=== PATIENT | female | born 1950 | race Caucasian/White ===

== ENCOUNTER → 2016-04-26 | Outpatient (CLI) | payer MEDICARE ==
--- NOTE | 2016-04-26 15:54 | BD ---
EXAMINATION TYPE: MG DEXA axial skeleton. DATE OF EXAM: 04/26/2016 2:27 PM COMPARISON: 04.14.2008 CLINICAL HISTORY: M89.9 DISORDER OF THE BONE Height: 61.3 Weight: 156 FRAX RISK QUESTIONS: Alcohol (3 or more units per day): NO Family History (Parent hip fracture): NO Glucocorticoids (More than 3mos): NO (Ex: prednisone, prednisolone, methylprednisolone, dexamethasone, and hydrocortisone). History of Fracture in Adulthood: NO Secondary Osteoporosis: NO 1. Type 1 Diabetes: NO 2. Hyperthyroidism: NO 3. Menopause before 45: NO 4. Malnutrition: NO 5. Chronic liver disease: NO Rheumatoid Arthritis: NO Current Tobacco Use: NO RISK FACTORS HISTORY OF: Family History of Osteoporosis: YES, HER MOTHER Smoke tobacco: NO Drink Alcohol: SOCIAL Active: YES Diet low in dairy products/other sources of calcium: NO Postmenopausal woman: 51 YRS OLD Take estrogen and/or progesterone medications: CONTRACEPTIVES FOR ONLY 1 YR Adrenal Insufficiency: NO MEDICATIONS: Osteoporosis Medications: HAD A REACTION TO ACTENOL LONG AGO...WILL NOT USE Additional Medications: CALCIUM WITH D Additional History: NONE TO NOTE EXAM MEASUREMENTS: Bone mineral densitometry was performed using the ODIN System. Bone mineral density as measured about the Lumbar spine is: ----- L1-L4(G/cm2): 1.038 T Score Values are as follows: ----- L1: -1.1 ----- L2: -1.3 ----- L3: -1.2 ----- L4: -1.2 ----- L1-L4: -1.2 Bone mineral density has: Increased 6.7% since study of: 04.14.2008 Bone mineral density about the R hip (g/cm2): 0.852 Bone mineral density about the L hip (g/cm2): 0.848 T Score values are as follows: -----R Neck: -1.8 -----L Neck: -1.2 -----R Intertrochanter: -1.5 -----L Intertrochanter: -1.3 Bone mineral density REMAINED THE SAME...0.0: SINCE STUDY OF 04.14.2008 FRAX %'S: 11.3% FOR A MAJOR OSTEOPOROTIC FX AND 1.9% FOR A HIP FX......PROBABILITY OF FX IN 10 YRS TIME IMPRESSION: Osteopenia (T Score between -2.5 and -1 as noted by T score values There is slightly increased risk of fracture and the patient may be considered for treatment. Re-Screen 1-2 years. FOR BOTH HIPS AND LUMBAR SPINE remains present. NOTE: T-SCORE=SD OF THE YOUNG ADULT MEAN.
--- NOTE | 2016-04-27 11:07 | MM ---
Reason for exam: screening (asymptomatic). Last mammogram was performed 1 year and 1 month ago. History: Patient is postmenopausal. Benign right mammotome panel of the right breast, October 12, 2005. Took hormonal contraceptives for 1 year beginning at age 19. Physical Findings: A clinical breast exam by your physician is recommended on an annual basis and results should be correlated with mammographic findings. MG 3D Screening Mammo W/Cad Bilateral CC and MLO view(s) were taken. Prior study comparison: March 24, 2015, bilateral MG 3d screening mammo w/cad. October 23, 2013, bilateral MG screening mammo w CAD. There are scattered fibroglandular densities. Previous mammotome biopsy in the right breast. There is chronic nodularity in the left breast. No significant changes when compared with prior studies. ASSESSMENT: Benign, BI-RAD 2 RECOMMENDATION: Routine screening mammogram of both breasts in 1 year.
== END | disposition home or self-care (01) ==
LOC: RADMAMWWP 13:54
PROVIDERS: ATTEND Obstetrics & Gynecology
DX: Z12.31 Encounter for screening mammogram for malignant neoplasm of breast (principal); M85.80 Other specified disorders of bone density and structure, unspecified site; M89.9 Disorder of bone, unspecified
CPT/HCPCS: 77080; 77063; G0202

== ENCOUNTER → 2016-05-10 | Outpatient (CLI) | payer MEDICARE ==
--- NOTE | 2016-05-10 13:10 | US ---
EXAMINATION TYPE: US pelvic complete DATE OF EXAM: 05/10/2016 8:34 AM COMPARISON: NONE CLINICAL HISTORY: R10.2 pelvic pain. Pelvic discomfort. Patient states falling in February. TECHNIQUE: Transabdominal (TA) Date of LMP: PM, EXAM MEASUREMENTS: Uterus: 8.7 x 4.1 x 4.3 cm Endometrial Stripe: 0.7 cm Right Ovary: 2.4 x 1.3 x 1.3 cm Left Ovary: 2.6 x 1.7 x 1.1 cm 1. Uterus: Anteverted Two fundal heterogenous lesions with echogenic areas seen. 1- 3.8 x 2.9 x 3 .6 cm. 2.1 x 1.9 x 2.1 cm. 2. Endometrium: Not well defined and transabdominal scanning, there may be an echogenic focus along endometrium measuring 5 x 9 mm 3. Right Ovary: wnl as visualized 4. Left Ovary: wnl as visualized Spectral, color and waveform doppler imaging shows good arterial and venous flow within the ovaries ; there is no evidence for ovarian torsion. 5. Bilateral Adnexa: wnl 6. Posterior cul-de-sac: no free fluid IMPRESSION: Fibroid uterus. Additional findings above Follow-up as indicated.
== END | disposition home or self-care (01) ==
LOC: RADUSMAIN 08:02
PROVIDERS: ATTEND Obstetrics & Gynecology
DX: D25.9 Leiomyoma of uterus, unspecified (principal)
CPT/HCPCS: 76856

== ENCOUNTER → 2017-05-17 | Outpatient (CLI) | payer MEDICARE ==
--- NOTE | 2017-05-20 13:42 | MM ---
Reason for exam: screening (asymptomatic). Last mammogram was performed 1 year and 1 month ago. History: Patient is postmenopausal. Benign right mammotome panel of the right breast, October 12, 2005. Took hormonal contraceptives for 1 year beginning at age 19. Physical Findings: A clinical breast exam by your physician is recommended on an annual basis and results should be correlated with mammographic findings. MG 3D Screening Mammo W/Cad Bilateral CC and MLO view(s) were taken. Prior study comparison: April 26, 2016, bilateral MG 3d screening mammo w/cad. March 24, 2015, bilateral MG 3d screening mammo w/cad. The breast tissue is heterogeneously dense. This may lower the sensitivity of mammography. No significant changes when compared with prior studies. ASSESSMENT: Benign, BI-RAD 2 RECOMMENDATION: Routine screening mammogram of both breasts in 1 year.
== END | disposition home or self-care (01) ==
LOC: RADMAMWWP 07:00
PROVIDERS: ATTEND Obstetrics & Gynecology
DX: Z12.31 Encounter for screening mammogram for malignant neoplasm of breast (principal)
CPT/HCPCS: 77063; 77067

== ENCOUNTER → 2017-06-04 | Outpatient (CLI) | payer MEDICARE ==
--- NOTE | 2017-06-04 08:25 | US ---
EXAMINATION TYPE: US pelvic complete DATE OF EXAM: 06/04/2017 COMPARISON: 05/10/2016 CLINICAL HISTORY: R10.2 pelvic pain; patient stated has intermittent pelvic pain and known uterine fi broids; TECHNIQUE: Transabdominal (TA). Transabdominal sonographic images of the pelvis were acquired. Maria Victoria ent deferred TV US. Date of LMP: post menopausal EXAM MEASUREMENTS: Uterus: 9.2 x 4.7 x 4.3cm Endometrial Stripe: 0.8 cm Right Ovary: 2.1 x 1.9 x 2.2 cm Left Ovary: 2.4 x 2.7 x 1.6 cm 1. Uterus: Two oval isoechoic masses (uterine fibroids) noted in uterus with larger upper mass = 3.9 x 3.0 x 4.8cm and smaller mass mid myometrium = 2.2 x 2.1 x 1.9cm. 2. Endometrium: thickness is upper limits of normal for post menopause 3. Right Ovary: area measured but could represent exophytic uterine fibroid 4. Left Ovary: small follicles 5. Bilateral Adnexa: wnl 6. Posterior cul-de-sac: wnl IMPRESSION: 1. Leiomyomatous change of the uterus.
== END | disposition home or self-care (01) ==
LOC: RADUSWWP 06:59
PROVIDERS: ATTEND Obstetrics & Gynecology
DX: D25.9 Leiomyoma of uterus, unspecified (principal)
CPT/HCPCS: 76856

== ENCOUNTER → 2017-07-25 | Outpatient (CLI) | payer MEDICARE ==
[2017-07-25 10:59] LABS: Basophils # (A) 0.1 k/uL (0-0.2); Basophils % (A) 1 %; Eosinophils # (A) 0.4 k/uL (0-0.7); Eosinophils % (A) 4 %; HCT 44.4 % (34.0-46.0); HGB 14.5 gm/dL (11.4-16.0); Lymphocytes # (A) 2.2 k/uL (1.0-4.8); Lymphocytes % (A) 25 %; MCH 30.5 pg (25.0-35.0); MCHC 32.7 g/dL (31.0-37.0); MCV 93.4 fL (80.0-100.0); Mean Platelet Volume 6.6; Monocytes # (A) 0.6 k/uL (0-1.0); Monocytes % (A) 7 %; Neutrophils # (A) 5.2 k/uL (1.3-7.7); Neutrophils % (A) 60 %; Platelet Count 293 k/uL (150-450); RBC 4.76 m/uL (3.80-5.40); RDW 13.3 % (11.5-15.5); WBC 8.7 k/uL (3.8-10.6)
== END | disposition home or self-care (01) ==
LOC: LABPAT 10:26
PROVIDERS: ATTEND Obstetrics & Gynecology
DX: Z01.818 Encounter for other preprocedural examination (principal); Z01.812 Encounter for preprocedural laboratory examination
CPT/HCPCS: 36415; 85025; 93005

== ENCOUNTER 2017-08-02 06:21 | Day surgery (SDC) | payer MEDICARE ==
[2017-07-30 10:18] VITALS: BMI 25.0
--- NOTE | 2017-07-31 16:50 | P.HPOB ---
History of Present Illness H&P Date: 07/31/17 Chief Complaint: Thickened endometrium Patient is a 67-year-old female who had been originally seen for pelvic pressure and pain. Ultrasound done approximately 1 year ago showed and returned to be approximately 7 mm at that time she had no vaginal bleeding and no other symptoms and all of the findings had been normal therefore repeat was done approximately 1 year later and the lining was essentially the same but as it is still slightly thickened a D&C will be done to verify no pathology. Risks /benefits/alternatives to this procedure were discussed with the patient in detail and all questions were answered for both she and her prior to proceeding to the operating room. Past Medical History Past Medical History: Hypertension Additional Past Medical History / Comment(s): NO BLOOD PRESSURE MEDS, JUST MONITORING. UTERINE FIBROIDS, URINE LEAKAGE History of Any Multi-Drug Resistant Organisms: None Reported Past Surgical History: No Surgical Hx Reported Past Anesthesia/Blood Transfusion Reactions: No Reported Reaction Past Psychological History: Anxiety Smoking Status: Former smoker Past Alcohol Use History: Daily Additional Past Alcohol Use History / Comment(s): 1-2 GLASSES OF WINE A NIGHT Past Drug Use History: None Reported - Past Family History Father Family Medical History: Cancer, Myocardial Infarction (OR) Additional Family Medical History / Comment(s): ESOPHAGEAL CANCER Sister(s) Family Medical History: Cancer Medications and Allergies Home Medications Medication Instructions Recorded Confirmed Type No Known Home Medications [No 07/30/17 07/30/17 History Known Home Medications] Allergies Allergy/AdvReac Type Severity Reaction Status Date / Time methylprednisolone Allergy Unknown Verified 07/30/17 10:18 Exam Osteopathic Statement: *. No significant issues noted on an osteopathic structural exam other than those noted in the History and Physical/Consult. - OBG Physical Exam Breast: both: normal (no masses) Abdomen: bowel sounds normal, no diffuse tenderness, no bruit present, no guarding noted, no hepatomegaly, no splenomegaly, no mass Vulva: both: normal Vagina: normal moisture, no discharge Cervix: no lesion, no discharge Uterus: normal size, normal contour Adnexa: both: normal Anus/Rectum: normal perianal skin, no rectal mass, no hemorrhoids, heme negative
[~2017-08-02 06:21] MED LIST: HYDROmorphone 0.5 MG/0.5 ML SYRINGE IVP PRN; LACTATED RINGERS 1,000 ML IV SCH; LIDOCAINE 1% 20 ML VIAL (10MG/ML) FOR IV START INTRADERMA PRN; MIDAZOLAM 2 MG/2 ML VIAL IV PRN; ONDANSETRON 4 MG/2 ML VIAL IVP ONE; Pre Op ABX Message 1 EACH MISC MISCELLANE ONE; SCOPOLAMINE 1.5MG/72HR PATCH TRANSDERM ONE
[2017-08-02] MEDS ORDERED: fentaNYL (PF) 50 MCG/ML 2 ML AMP ONE (08:06)
[2017-08-02] MEDS ORDERED: KETOROLAC 30 MG/ML 1 ML VIAL ONE (08:06)
[2017-08-02] MEDS ORDERED: PROPOFOL 10 MG/ML 20 ML VIAL IV ONE (08:06)
[2017-08-02] MEDS ORDERED: MIDAZOLAM 2 MG/2 ML VIAL ONE (08:06)
--- NOTE | 2017-08-02 08:37 | P.OP ---
Date of Procedure: 08/02/17 Preoperative Diagnosis: Thickened endometrium Postoperative Diagnosis: Same with polyps Procedure(s) Performed: D&C with hysteroscopy and polypectomy Anesthesia: IVANA [place] Surgeon: Mazin Sahni Estimated Blood Loss (ml): 5 Pathology: other (Uterine curettings) Condition: stable Disposition: same day Operative Findings: 2 distinct polyps are noted Description of Procedure: Patient was taken to the operating suite where a general anesthetic was found be adequate. She was prepped and draped in the normal sterile fashion and placed in dorsal lithotomy position. Initially a weighted speculum was inserted into the vagina and anterior lip of the cervix identified and grasped with single-tooth tenaculum. Uterus is then sounded to 8 cm and then cervix was dilated. Camera was inserted with notation of polyps and otherwise what appeared to be atrophic endometrium. Therefore scope was removed and polyp forceps was used to remove 2 distinct polyps. Sharp curettings of endometrium were obtained after this but scant to no tissue was obtained. All instruments were then removed. Sponge, lap, needle counts were all correct 2. Patient was then taken to the recovery room in stable and satisfactory condition. Plan - Discharge Summary Discharge Rx Participant: Yes New Discharge Prescriptions: New Ibuprofen [Motrin] 600 mg PO Q6HR PRN #30 tab PRN Reason: Pain Discharge Medication List Ibuprofen [Motrin] 600 mg PO Q6HR PRN #30 tab 08/02/17 [Rx] Activity/Diet/Wound Care/Special Instructions: Heavy lifting today, limit stairs and driving today, and pelvic rest. If any high temperatures, heavy bleeding, or severe pain call my office Discharge Disposition: HOME SELF-CARE
[2017-08-02 08:46] VITALS: TEMP 97.4
[2017-08-02 09:59] VITALS: BP 136/59; PULSE 59; RESP 18
== END 2017-08-02 10:19 | disposition home or self-care (01) ==
LOC: OR 06:21
PROVIDERS: ATTEND Obstetrics & Gynecology
DX: N84.0 Polyp of corpus uteri (principal); I10 Essential (primary) hypertension; F41.9 Anxiety disorder, unspecified; Z88.8 Allergy status to other drugs, medicaments and biological substances; Z87.891 Personal history of nicotine dependence
CPT/HCPCS: 88305; 58558; J2250; J2405; J3010; J1885; J2704

== ENCOUNTER → 2018-06-18 | Outpatient (CLI) | payer MEDICARE ==
--- NOTE | 2018-06-19 09:21 | MM ---
Reason for exam: screening (asymptomatic). Last mammogram was performed 1 year and 1 month ago. History: Patient is postmenopausal. Benign right mammotome panel of the right breast, October 12, 2005. Took hormonal contraceptives for 1 year beginning at age 19. Physical Findings: A clinical breast exam by your physician is recommended on an annual basis and results should be correlated with mammographic findings. MG 3D Screening Mammo W/Cad Bilateral CC and MLO view(s) were taken. Prior study comparison: May 17, 2017, bilateral MG 3d screening mammo w/cad. April 26, 2016, bilateral MG 3d screening mammo w/cad. The breast tissue is heterogeneously dense. This may lower the sensitivity of mammography. Previous mammotome biopsy in the right breast. There is chronic nodularity in the left breast. No significant changes when compared with prior studies. ASSESSMENT: Negative, BI-RAD 1 RECOMMENDATION: Routine screening mammogram of both breasts in 1 year.
== END | disposition home or self-care (01) ==
LOC: RADMAMWWP 07:49
PROVIDERS: ATTEND Obstetrics & Gynecology
DX: Z12.31 Encounter for screening mammogram for malignant neoplasm of breast (principal)
CPT/HCPCS: 77063; 77067

== ENCOUNTER → 2019-07-20 | Outpatient (CLI) | payer MEDICARE ==
--- NOTE | 2019-07-20 09:03 | US ---
EXAMINATION TYPE: US axilla LT DATE OF EXAM: 07/20/2019 COMPARISON: NONE CLINICAL HISTORY: R59.0 localized enlarged lymph nodes. Left axilla pain and swelling patient fell a month ago. FINDINGS/TECHNIQUE: Grayscale and color imaging was performed of the left axilla for left axillary pa in and swelling. There are 3 hypoechoic areas seen with the largest measuring 3 cm. The largest of th [place] contains a central fatty hilum and has abnormal cortical thickening measuring 1.2 cm. IMPRESSION: Suspicious left axillary adenopathy. Percutaneous biopsy recommended.
== END | disposition home or self-care (01) ==
LOC: RADUSWWP 08:19
PROVIDERS: ATTEND Family Medicine
DX: R59.0 Localized enlarged lymph nodes (principal)

== ENCOUNTER 2019-10-16 23:20 | Observation (INO) | payer MEDICARE ==
[2019-10-16] MEDS ORDERED: ACETAMINOPHEN TAB 500 MG TAB PO STA (23:40)
--- NOTE | 2019-10-16 23:50 | ED ---
Fever HPI - General Chief Complaint: Fever Stated Complaint: Fever Time Seen by Provider: 10/16/19 23:30 Source: patient, family Mode of arrival: ambulatory Limitations: no limitations - History of Present Illness Initial Comments: 69-year-old female patient with past medical history significant for breast cancer currently being treated with chemo, hypertension, and diverticulitis presents to the emergency department today for evaluation of fever. Patient states that she is currently taking Augmentin for possible diverticulitis. Her physician called in the antibiotic because patient was experiencing some pressure in her lower abdomen. Her last Chemo treatment was October 07. States that she developed a fever this evening. She did call her oncologist and was told to come to the emergency department for labs. Patient states her temperature at home was 101F. She denies any abdominal pain. States she is having soft bowel movements and did have blood in her stool this morning. She denies any cough, congestion, rash, hematuria, dysuria, urinary urgency, urinary frequency. Denies nausea or vomiting. Patient denies any recent shortness of breath, chest pain, back pain, numbness, tingling, dizziness, weakness, headache, visual changes, or any other complaints. - Related Data Previous Rx's Medication Instructions Recorded Ibuprofen [Motrin] 600 mg PO Q6HR PRN #30 tab 08/02/17 Ibuprofen [Motrin] 600 mg PO Q6HR PRN #30 tab 08/02/17 Allergies Allergy/AdvReac Type Severity Reaction Status Date / Time methylprednisolone Allergy Unknown Verified 10/16/19 23:27 prednisone Allergy Unknown Verified 10/16/19 23:28 Review of Systems ROS Statement: Those systems with pertinent positive or pertinent negative responses have been documented in the HPI. ROS Other: All systems not noted in ROS Statement are negative. Past Medical History Past Medical History: Cancer, Hypertension Additional Past Medical History / Comment(s): breast CA History of Any Multi-Drug Resistant Organisms: None Reported Past Surgical History: No Surgical Hx Reported Past Psychological History: No Psychological Hx Reported Smoking Status: Former smoker Past Alcohol Use History: None Reported Past Drug Use History: None Reported General Exam Limitations: no limitations General appearance: alert, in no apparent distress, other (This is a well- developed, well-nourished adult female patient in no acute distress. Vital sig ns upon presentation are temperature 101.8F, pulse 98, respiration 16, blood pressure 153/73, pulse ox 98% on room air.) Eye exam: Present: normal appearance, PERRL, EOMI. Absent: scleral icterus, conjunctival injection, periorbital swelling ENT exam: Present: normal oropharynx, mucous membranes moist, other (Multiple oral lesions, erythema noted.). Absent: normal exam Respiratory exam: Present: normal lung sounds bilaterally. Absent: respiratory distress, wheezes, rales, rhonchi, stridor Cardiovascular Exam: Present: regular rate, normal rhythm, normal heart sounds. Absent: systolic murmur, diastolic murmur, rubs, gallop, clicks GI/Abdominal exam: Present: soft, normal bowel sounds. Absent: distended, tenderness, guarding, rebound, rigid Neurological exam: Present: alert, oriented X3, CN II-XII intact Psychiatric exam: Present: normal affect, normal mood Skin exam: Present: warm, dry, intact, normal color. Absent: rash Course Vital Signs 10/16/19 10/16/19 10/17/19 23:21 23:40 01:49 Temperature 100.2 F H 101.8 F H 99.5 F Pulse Rate 98 77 Respiratory 16 18 Rate Blood Pressure 153/73 121/51 O2 Sat by Pulse 98 99 Oximetry - Reevaluation(s) Reevaluation #1: 10/17/19 01:45 Call has been placed to [facility] in order to speak to the patient's oncologist Dr. Rayna Gomez M.D. Reevaluation #2: 10/17/19 02:39 [facility] called back, they are still attempting to contact the patient's oncologist. Medical Decision Making - Medical Decision Making 69-year-old female patient with past history significant for diagnosis of breast cancer, currently receiving chemotherapy Cytoxan 1000 mg every 2 weeks. Last dose was October 07. Next dose in Oct 21. Patient was started on Augmentin yesterday by her oncologist for reports of lower abdominal pressure, patient did have a diverticulitis infection in August. At present patient reports no abdominal pain or pressure. Physical examination revealed a soft and nontender abdomen. Upon arrival she did have a temperature elevated at 101.8F. Labs reviewed and did reveal decreased white blood cell count at 0.5, hemoglobin 8.6. Labs performed on 09/24/19 showed a white blood cell count of 19.9 and hemoglobin of 10.9. Chest x-ray and urinalysis here were negative for signs of infection. Since patient is not currently having abdominal pain I did not perform CT of the abdomen. We did discuss her results and concern for neutropenic fever. I did attempt to contact her oncologist Dr. Liliam Goemz at [facility], but was unsuccessful. Patient is reluctant to be transferred to [facility]. She'll be admitted to the hospital and started on cefepime and vancomycin. We will consult Dr. Rangel here. Patient is agreeable to this plan. - Lab Data Result diagrams: 10/17/19 00:16 10/17/19 00:16 Lab Results 10/17/19 10/17/19 10/17/19 Range/Units 00:16 00:16 00:16 WBC 0.5 L* (3.8-10.6) k/uL RBC 2.79 L (3.80-5.40) m/uL Hgb 8.6 L (11.4-16.0) gm/dL Hct 25.6 L (34.0-46.0) % MCV 91.6 (80.0-100.0) fL MCH 30.6 (25.0-35.0) pg MCHC 33.5 (31.0-37.0) g/dL RDW 13.9 (11.5-15.5) % Plt Count 91 L (150-450) k/uL Differential Comment Manual Slide Review Performed PT 9.7 (9.0-12.0) sec INR 0.9 (<1.2) APTT 24.6 (22.0-30.0) sec Sodium (137-145) mmol/L Potassium (3.5-5.1) mmol/L Chloride (98-107) mmol/L Carbon Dioxide (22-30) mmol/L Anion Gap mmol/L BUN (7-17) mg/dL Creatinine (0.52-1.04) mg/dL Est GFR (CKD-EPI)AfAm (>60 ml/min/1.73 sqM) Est GFR (CKD-EPI)NonAf (>60 ml/min/1.73 sqM) Glucose (74-99) mg/dL Plasma Lactic Acid Inocencio (0.7-2.0) mmol/L Calcium (8.4-10.2) mg/dL Total Bilirubin (0.2-1.3) mg/dL AST (14-36) U/L ALT (4-34) U/L Alkaline Phosphatase (38-126) U/L Total Protein (6.3-8.2) g/dL Albumin (3.5-5.0) g/dL Urine Color Yellow Urine Appearance Clear (Clear) Urine pH 5.5 (5.0-8.0) Ur Specific [place] 1.023 (1.001-1.035) Urine Protein Negative (Negative) Urine Glucose (UA) Negative (Negative) Urine Ketones 1+ H (Negative) Urine Blood Trace H (Negative) Urine Nitrite Negative (Negative) Urine Bilirubin Negative (Negative) Urine Urobilinogen 2.0 (<2.0) mg/dL Ur Leukocyte Esterase Negative (Negative) Urine WBC 2 (0-5) /hpf Ur Squamous Epith Cells <1 (0-4) /hpf Urine Mucus Rare H (None) /hpf 10/17/19 10/17/19 Range/Units 00:16 00:16 WBC (3.8-10.6) k/uL RBC (3.80-5.40) m/uL Hgb (11.4-16.0) gm/dL Hct (34.0-46.0) % MCV (80.0-100.0) fL MCH (25.0-35.0) pg MCHC (31.0-37.0) g/dL RDW (11.5-15.5) % Plt Count (150-450) k/uL Differential Comment Manual Slide Review PT (9.0-12.0) sec INR (<1.2) APTT (22.0-30.0) sec Sodium 133 L (137-145) mmol/L Potassium 3.7 (3.5-5.1) mmol/L Chloride 103 (98-107) mmol/L Carbon Dioxide 23 (22-30) mmol/L Anion Gap 7 mmol/L BUN 9 (7-17) mg/dL Creatinine 0.57 (0.52-1.04) mg/dL Est GFR (CKD-EPI)AfAm >90 (>60 ml/min/1.73 sqM) Est GFR (CKD-EPI)NonAf >90 (>60 ml/min/1.73 sqM) Glucose 116 H (74-99) mg/dL Plasma Lactic Acid Inocencio 1.0 (0.7-2.0) mmol/L Calcium 8.5 (8.4-10.2) mg/dL Total Bilirubin 0.6 (0.2-1.3) mg/dL AST 13 L (14-36) U/L ALT 8 (4-34) U/L Alkaline Phosphatase 78 (38-126) U/L Total Protein 6.1 L (6.3-8.2) g/dL Albumin 3.6 (3.5-5.0) g/dL Urine Color Urine Appearance (Clear) Urine pH (5.0-8.0) Ur Specific [place] (1.001-1.035) Urine Protein (Negative) Urine Glucose (UA) (Negative) Urine Ketones (Negative) Urine Blood (Negative) Urine Nitrite (Negative) Urine Bilirubin (Negative) Urine Urobilinogen (<2.0) mg/dL Ur Leukocyte Esterase (Negative) Urine WBC (0-5) /hpf Ur Squamous Epith Cells (0-4) /hpf Urine Mucus (None) /hpf - EKG Data -: EKG Interpreted by Ca EKG Comments: EKG obtained at 00 44 shows normal sinus rhythm with a ventricular rate is 78, WI interval 166, QRS duration 82, QT 376, QTC 428. No evidence of ST elevation or depression. - Radiology Data Radiology results: report reviewed, image reviewed Two-view x-ray of the chest is obtained. Report was reviewed in its entirety. Impression by Dr. Mon shows mild atelectasis left lung base. No heart failure. Normal heart. Disposition Clinical Impression: Neutropenic fever Disposition: ADMITTED IP TO THIS [facility] Condition: Serious Referrals: Cedric Adams MD [Primary Care Provider] - 1-2 days Decision to Admit Reason: Admit from EC Decision Date: 10/17/19 Decision Time: 03:06
[2019-10-17] MEDS: SODIUM CHLORIDE 0.9% 500 ML 500 ML IV SCH ×3 (00:40→03:43)
[2019-10-17 00:48] LABS: Appearance,Urine Clear (Clear); Bilirubin,Urine Negative (Negative); Blood,Urine Trace (Negative); Color,Urine Yellow; Glucose,Urine (UA) Negative (Negative); Ketones,Urine 1+ (Negative); Leukocyte Esterase,Urine Negative (Negative); Mucus,Urine Rare /hpf; Nitrite,Urine Negative (Negative); PH, Urine 5.5 (5.0-8.0); Protein,Urine Negative (Negative); Specific Gravity,Urine 1.023 (1.001-1.035); Squamous Epithelial Cell,Urine <1 /hpf (0-4); WBC,Urine 2 /hpf (0-5)
[2019-10-17 00:52] LABS: HCT 25.6 % (34.0-46.0); HGB 8.6 gm/dL (11.4-16.0); MCH 30.6 pg (25.0-35.0); MCHC 33.5 g/dL (31.0-37.0); MCV 91.6 fL (80.0-100.0); Mean Platelet Volume 7.2; RBC 2.79 m/uL (3.80-5.40); RDW 13.9 % (11.5-15.5)
[2019-10-17 00:55] LABS: WBC 0.5 k/uL (3.8-10.6)
[2019-10-17 00:56] LABS: INR 0.9 (<1.2); Partial Thromboplastin Time 24.6 sec (22.0-30.0); Prothrombin Time 9.7 sec (9.0-12.0)
[2019-10-17 00:59] LABS: ALT 8 U/L (4-34); AST 13 U/L (14-36); African American GFR (CKD) >90 (>60 ml/min/1.73 sqM); Albumin 3.6 g/dL (3.5-5.0); Alkaline Phosphatase 78 U/L (38-126); Anion Gap 7 mmol/L; Blood Urea Nitrogen 9 mg/dL (7-17); Calcium 8.5 mg/dL (8.4-10.2); Carbon Dioxide 23 mmol/L (22-30); Chloride 103 mmol/L (98-107); Glucose 116 mg/dL (74-99); Non-African American GFR(CKD) >90 (>60 ml/min/1.73 sqM); Potassium 3.7 mmol/L (3.5-5.1); Sodium 133 mmol/L (137-145); Total Bilirubin 0.6 mg/dL (0.2-1.3); Total Protein 6.1 g/dL (6.3-8.2)
--- NOTE | 2019-10-17 01:13 | XR ---
EXAMINATION TYPE: XR chest 2V DATE OF EXAM: 10/17/2019 COMPARISON: NONE HISTORY: Fever TECHNIQUE: 2 views FINDINGS: There is some mild atelectasis left lung base. There is hiatal hernia. There is right centr al venous catheter with tip in the superior vena cava. Thoracic aorta is atheromatous. There are no h ilar masses. Bony thorax is intact. IMPRESSION: There is some mild atelectasis left lung base. No heart failure. Normal heart.
[2019-10-17 01:14] LABS: Platelet Count 91 k/uL (150-450)
[2019-10-17] MEDS ORDERED: VANCOMYCIN IV PER PHARMACY 1 EACH MISC MISCELLANE PRN (02:57)
[2019-10-17] MEDS ORDERED: ONDANSETRON 4 MG/2 ML VIAL IVP PRN (02:59)
[2019-10-17] MEDS ORDERED: NALOXONE 0.4 MG/ML 1 ML VIAL IV PRN (02:59)
[2019-10-17] MEDS ORDERED: CEFEPIME 2 GM in SODIUM CHLORIDE 0.9% 100 ML IVPB ONE (03:00)
[2019-10-17] MEDS: SODIUM CHLORIDE 0.9% 1,000 ML IV SCH ×2 (03:20→19:32)
[2019-10-17] MEDS ORDERED: VANCOMYCIN 1,000 MG in SODIUM CHLORIDE 0.9% 250 ML IVPB ONE (04:00)
[2019-10-17] MEDS ORDERED: VANCOMYCIN 1,250 MG in SODIUM CHLORIDE 0.9% 250 ML IVPB ONE (05:00)
[2019-10-17] MEDS ORDERED: LIDOCAINE-PRILOCAINE 2.5-2.5% CREAM 5 GM TUBE TOPICAL PRN (11:00)
[2019-10-17] MEDS: CEFEPIME 2 GM in SODIUM CHLORIDE 0.9% 100 ML IVPB SCH ×2 (11:09→20:10)
[2019-10-17] MEDS: PANTOPRAZOLE 40 MG TABLET PO SCH (11:16)
[2019-10-17 13:25] VITALS: BMI 23.9
--- NOTE | 2019-10-17 16:31 | P.HPIM ---
History of Present Illness H&P Date: 10/17/19 Chief Complaint: Fever History of presenting complaint: This is a very pleasant 69-year-old patient follows with her primary Dr. Cedric Adams. Patient is being diagnosed with breast cancer. Gets chemotherapy every 2 weeks. Last chemotherapy was about 10 days ago. A month ago patient had diverticulitis. Since then she has been on preventive antibiotics. She developed a fever yesterday. No cough no shortness of breath no urinary symptoms. No diarrhea. Presented to the ER. Empirically started on antibiotics including vancomycin and cefepime. Patient has some oral sores. Decreased appetite. Some weight loss. is present at bedside. Patient's oncologist is Dr. Gomez from the [facility] Review of systems: GEN.: Fever tired decreased appetite EYES: None HEENT: Oral sores NECK: None RESPIRATORY: None CARDIOVASCULAR: None GASTROINTESTINAL: None GENITOURINARY: None MUSCULOSKELETAL: None LYMPHATICS: None HEMATOLOGICAL: None PSYCHIATRY: None NEUROLOGICAL: None Past medical history to include: Breast cancer currently undergoing chemotherapy, hypertension, diverticulitis, Social history: No smoking. No alcohol. . Physical examination: VITAL SIGNS: 101.8, 98, 16, 153/73, 98% on room air GENERAL: BMI 23.9, sitting up in chair, awake. EYES: Pupils equal. Conjunctiva normal. HEENT: External appearance of nose and ears normal, oral cavity grossly normal. NECK: JVD not raised; masses not palpable. HEART: First and second heart sounds are normal; no edema. LUNGS: Respiratory rate normal; clear to auscultation. ABDOMEN: Soft, nontender, liver spleen not palpable, no masses palpable. PSYCH: Alert and oriented x3; mood and affect normal. NEUROLOGICAL: Cranial nerves grossly intact; no facial asymmetry, power and sensation grossly intact. LYMPHATICS: No lymph nodes palpable in the axilla and neck INVESTIGATIONS, reviewed in the clinical context: White count 0.5 hemoglobin 8.6 platelets 91 potassium 3.7 creatinine 0.57 sodium 133 UA positive for ketones, trace blood EKG tracing personally reviewed by me-normal sinus rhythm Chest x-ray film personally reviewed by me-possible chronic changes Blood culture drawn Assessment: -Febrile neutropenia with no obvious source of infection. Patient empirically has been started on vancomycin and cefepime. -Breast cancer patient is getting chemotherapy every 2 weeks. -Pancytopenia secondary to chemotherapy -Essential hypertension -Oral Apthous ulcerations likely from chemotherapy -Anorexia from chemotherapy Plan: Blood cultures are drawn. IV fluids being given. Oncology consulted. Patient will need G-CSF. And showed is being added. Follow labs closely. Care was discussed with the patient at the bedside. Questions were answered. 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, diverticulitis History of Any Multi-Drug Resistant Organisms: None Reported Past Surgical History: No Surgical Hx Reported Past Anesthesia/Blood Transfusion Reactions: No Reported Reaction Past Psychological History: Depression Smoking Status: Former smoker Past Alcohol Use History: None Reported Past Drug Use History: None Reported - Past Family History Mother Family Medical History: Hypertension Additional Family Medical History / Comment(s): brain aneurysm Father Family Medical History: Cancer, Hypertension Additional Family Medical History / Comment(s): esophageal cancer Sister(s) Family Medical History: Cancer Additional Family Medical History / Comment(s): bone cancer Medications and Allergies Home Medications Medication Instructions Recorded Confirmed Type Amoxicillin/Potassium Clav 2 tablet PO BID 10/17/19 10/17/19 History [Amox-Clav ER 1,000-62.5 mg Tab] Lidocaine-Prilocaine Cream [Emla 1 applic TOPICAL DAILY PRN 10/17/19 10/17/19 History Cream 2.5%/2.5%] Omeprazole Magnesium [PriLOSEC OTC] 20 mg PO DAILY 10/17/19 10/17/19 History amLODIPine [Norvasc] 2.5 mg PO HS 10/17/19 10/17/19 History Allergies Allergy/AdvReac Type Severity Reaction Status Date / Time methylprednisolone AdvReac SEVERE Verified 10/17/19 08:06 HEADACHE, STROKE SYMPTOMS prednisone AdvReac severe Verified 10/17/19 08:06 headache stroke symptoms Physical Exam Vitals: Vital Signs Temp Pulse Pulse Resp BP BP Pulse Ox 10/17/19 04:21 98.4 F 78 17 111/62 99 10/17/19 03:21 99.4 F 73 18 113/55 98 10/17/19 01:49 99.5 F 77 18 121/51 99 10/16/19 23:40 101.8 F H 10/16/19 23:21 100.2 F H 98 16 153/73 98 Intake and Output 10/16/19 10/17/19 10/17/19 22:59 06:59 14:59 Intake Total 250 Balance 250 Intake: Intake, IV Titration 250 Amount Vancomycin 1,250 mg In 250 Sodium Chloride 0.9% 250 ml @ 125 mls/hr IVPB Q12H [facility] Rx#:[id number] Other: Voiding Method Toilet Toilet # Voids 1 Weight 61.235 kg Results CBC & Chem 7: 10/17/19 00:16 10/17/19 00:16 Labs: Abnormal Lab Results - Last 24 Hours (Table) 10/17/19 10/17/19 10/17/19 Range/Units 00:16 00:16 00:16 WBC 0.5 L* (3.8-10.6) k/uL RBC 2.79 L (3.80-5.40) m/uL Hgb 8.6 L (11.4-16.0) gm/dL Hct 25.6 L (34.0-46.0) % Plt Count 91 L (150-450) k/uL Sodium 133 L (137-145) mmol/L Glucose 116 H (74-99) mg/dL AST 13 L (14-36) U/L Total Protein 6.1 L (6.3-8.2) g/dL Urine Ketones 1+ H (Negative) Urine Blood Trace H (Negative) Urine Mucus Rare H (None) /hpf Thrombosis Risk Factor Assmnt - Choose All That Apply Any of the Below Risk Factors Present?: No Other Risk Factors: Yes Each Risk Factor Represents 2 Points: Age 61-74 years, Malignancy Other congenital or acquired thrombophilia - If yes, enter type in comment: No Thrombosis Risk Factor Assessment Total Risk Factor Score: 4 Thrombosis Risk Factor Assessment Level: Moderate Risk
[2019-10-17] MEDS: SALT AND SODA MOUTHWASH 1,000 ML PO SCH ×3 (17:11→21:20)
[2019-10-17] MEDS: VANCOMYCIN 1,250 MG in SODIUM CHLORIDE 0.9% 250 ML IVPB SCH (17:11)
[2019-10-17] MEDS: amLODIPine 2.5 MG TAB PO SCH (19:19)
[2019-10-18] MEDS: CEFEPIME 2 GM in SODIUM CHLORIDE 0.9% 100 ML IVPB SCH ×3 (03:09→19:55)
[2019-10-18] MEDS: SODIUM CHLORIDE 0.9% 1,000 ML IV SCH ×2 (04:21→11:52)
[2019-10-18] MEDS: VANCOMYCIN 1,250 MG in SODIUM CHLORIDE 0.9% 250 ML IVPB SCH ×2 (05:20→17:55)
[2019-10-18 06:53] LABS: HCT 22.2 % (34.0-46.0); HGB 7.5 gm/dL (11.4-16.0); MCH 31.4 pg (25.0-35.0); MCHC 33.9 g/dL (31.0-37.0); MCV 92.4 fL (80.0-100.0); Mean Platelet Volume 9.6; RDW 14.1 % (11.5-15.5); WBC 1.7 k/uL (3.8-10.6)
[2019-10-18 06:57] LABS: Platelet Count 52 k/uL (150-450)
[2019-10-18] MEDS: PANTOPRAZOLE 40 MG TABLET PO SCH (09:09)
[2019-10-18] MEDS: SALT AND SODA MOUTHWASH 1,000 ML PO SCH ×4 (09:10→20:29)
--- NOTE | 2019-10-18 12:34 | P.CONS ---
History of Present Illness - Reason for Consult Consult date: 10/18/19 Febrile neutropenia. Breast cancer on chemotherapy - History of Present Illness The patient is a 69-year-old white female, would presented with a lump in the left axillary area in 07/31. Ultrasound at that time showed evidence of lymph node enlargement. The patient subsequently proceeded to mammogram at [facility] where she was found to have a breast mass. Further workup at the [facility], with biopsy revealing breast cancer. The patient states that she believes that her cancer was hormone receptor negative. She also reports that there was no evidence of spread of the cancer beyond the axillary lymph nodes. She was started on chemotherapy neoadjuvantly, with surgery planned subsequently. She has had 4 cycles of chemotherapy with the most recent one about 8-9 days ago. She does not remember the names of her medication before description this is most likely dose dense Adriamycin and Cytoxan combination. She states that she was to be change to a different chemotherapy next week (likely Taxane). She reports receiving Neulasta after her last chemotherapy The patient presented to the hospital because of development of a fever at home. She denied any localizing signs. The patient was as high as 101.8 on 10/15/17. WBC was 0.5. She was therefore admitted for further management. The patient has been afebrile since admission. WBC was 1.7 today. She reports a hospital admission after the first chemotherapy because of low WBC. It appears that she may have had diverticulitis at that time. However that did resolve with antibiotic and improvement in her white blood cells. Review of Systems Constitutional: Reports fatigue, Reports fever Eyes: denies blurred vision, denies pain Ears: deny: decreased hearing, ear discharge, earache, tinnitus Ears, nose, mouth and throat: Denies headache, Denies sore throat Breasts: Reports as per HPI Cardiovascular: Reports decreased exercise tolerance Respiratory: Denies cough Gastrointestinal: Denies abdominal pain, Denies diarrhea, Denies nausea, Denies vomiting Genitourinary: Denies dysuria, Denies hematuria Menstruation: Reports postmenopausal Musculoskeletal: Denies myalgias Integumentary: Denies pruritus, Denies rash Neurological: Denies numbness, Denies weakness Psychiatric: Denies anxiety, Denies depression Endocrine: Reports fatigue, Denies weight change Hematologic/Lymphatic: Reports as per HPI 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, diverticulitis History of Any Multi-Drug Resistant Organisms: None Reported Past Surgical History: No Surgical Hx Reported Past Anesthesia/Blood Transfusion Reactions: No Reported Reaction Past Psychological History: Depression Smoking Status: Former smoker Past Alcohol Use History: None Reported Past Drug Use History: None Reported - Past Family History Mother Family Medical History: Hypertension Additional Family Medical History / Comment(s): brain aneurysm Father Family Medical History: Cancer, Hypertension Additional Family Medical History / Comment(s): esophageal cancer Sister(s) Family Medical History: Cancer Additional Family Medical History / Comment(s): bone cancer Medications and Allergies Home Medications Medication Instructions Recorded Confirmed Type Amoxicillin/Potassium Clav 2 tablet PO BID 10/17/19 10/17/19 History [Amox-Clav ER 1,000-62.5 mg Tab] Lidocaine-Prilocaine Cream [Emla 1 applic TOPICAL DAILY PRN 10/17/19 10/17/19 History Cream 2.5%/2.5%] Omeprazole Magnesium [PriLOSEC OTC] 20 mg PO DAILY 10/17/19 10/17/19 History amLODIPine [Norvasc] 2.5 mg PO HS 10/17/19 10/17/19 History Allergies Allergy/AdvReac Type Severity Reaction Status Date / Time methylprednisolone AdvReac SEVERE Verified 10/17/19 08:06 HEADACHE, STROKE SYMPTOMS prednisone AdvReac severe Verified 10/17/19 08:06 headache stroke symptoms Physical Exam Vitals: Vital Signs Temp Pulse Resp BP Pulse Ox 10/18/19 05:15 98.5 F 71 16 122/67 95 10/17/19 20:31 98.3 F 85 16 97 10/17/19 20:09 85 115/66 Intake and Output 10/17/19 10/18/19 10/18/19 22:59 06:59 14:59 Intake Total 200 920 Balance 200 920 Intake: Intake, IV Titration 920 Amount Cefepime 2 gm In Sodium 200 Chloride 0.9% 100 ml @ 25 mls/hr IVPB Q8H [facility] Rx#: [id number] Sodium Chloride 0.9% 1, 720 000 ml @ 80 mls/hr IV . [id number] [facility] Rx#:[id number] Oral 200 Other: Voiding Method Toilet Toilet Toilet # Voids 1 1 - Constitutional General appearance: no acute distress - EENT Eyes: EOMI, PERRLA ENT: hearing grossly normal, normal oropharynx - Neck Neck: no lymphadenopathy Thyroid: bilateral: normal size - Respiratory Respiratory: bilateral: CTA - Cardiovascular Rhythm: regular Heart sounds: normal: S1, S2 - Gastrointestinal General gastrointestinal: normal bowel sounds, soft - Integumentary Integumentary: normal - Neurologic Neurologic: CNII-XII intact - Musculoskeletal Musculoskeletal: generalized weakness, strength equal bilaterally - Psychiatric Psychiatric: A&O x's 3, appropriate affect Results CBC & Chem 7: 10/18/19 06:41 10/17/19 00:16 Labs: Abnormal Lab Results - Last 24 Hours (Table) 10/18/19 Range/Units 06:41 WBC 1.7 L (3.8-10.6) k/uL RBC 2.40 L (3.80-5.40) m/uL Hgb 7.5 L (11.4-16.0) gm/dL Hct 22.2 L (34.0-46.0) % Plt Count 52 L (150-450) k/uL Microbiology - Last 24 Hours (Table) 10/17/19 00:16 Blood Culture - Preliminary Blood No Growth after 24 hours 10/17/19 00:35 Blood Culture - Preliminary Blood No Growth after 24 hours Chest x-ray: report reviewed Assessment and Plan (1) Neutropenic fever Narrative/Plan: The patient developed neutropenia due to chemotherapy for breast cancer. She has received growth factors already. She has no localizing signs. Fever has not recurred since admission. WBC showing improvement 1.7 today. - The improvement in WBC shows developing recovery post-chemo, and due to G-CSF effect. As it appears that she received Neulasta within the last 10 days there is no indication for additional growth factors currently. Check CBC in a.m. If ANC is still less than 1000 then additional G-CSF can be added 10 days after Neulasta. - Given the patient's clinical course, it is actually expected that she will continue to improve further. If she remains afebrile and cultures are negative tomorrow, that is over 48 hours, and WBC is continuing to improve, she can be discharged from my standpoint with oral antibiotic. Current Visit: Yes Status: Acute Code(s): D70.9 - NEUTROPENIA, UNSPECIFIED; R50.81 - FEVER PRESENTING WITH CONDITIONS CLASSIFIED ELSEWHERE SNOMED Code(s): 023657832 (2) Pancytopenia due to antineoplastic chemotherapy Narrative/Plan: Plan for WBC as noted above. Hemoglobin and platelets are in a safe range. Continue to monitor and transfuse for hemoglobin less than 7 and platelets less than 10, unless there is any active bleeding. Current Visit: Yes Status: Acute Code(s): D61.810 - ANTINEOPLASTIC CHEMOTHERAPY INDUCED PANCYTOPENIA; T45.1X5A - ADVERSE EFFECT OF ANTINEOPLASTIC AND IMMUNOSUP DRUGS, INIT SNOMED Code(s): 472561356432239 (3) Breast cancer, left breast Narrative/Plan: Diagnostic and therapeutic circumstances as described. The patient will resume follow-up with the [facility] after discharge here. Current Visit: Yes Status: Acute Code(s): C50.912 - MALIGNANT NEOPLASM OF UNSPECIFIED SITE OF LEFT FEMALE BREAST SNOMED Code(s): 013016904
[2019-10-18] MEDS: amLODIPine 2.5 MG TAB PO SCH (20:29)
--- NOTE | 2019-10-18 23:28 | P.PN ---
Progress Note - Text Progress Note Date: 10/18/19 Chief Complaint: Fever History of presenting complaint: This is a very pleasant 69-year-old patient follows with her primary Dr. Cedric Adams. Patient is being diagnosed with breast cancer. Gets chemotherapy every 2 weeks. Last chemotherapy was about 10 days ago. A month ago patient had diverticulitis. Since then she has been on preventive antibiotics. She developed a fever yesterday. No cough no shortness of breath no urinary symptoms. No diarrhea. Presented to the ER. Empirically started on antibiotics including vancomycin and cefepime. Patient has some oral sores. Decreased appetite. Some weight loss. is present at bedside. Patient's oncologist is Dr. Gomez from the [facility] today-feeling better. No fever. Consult improving. Has been up to the bathroom. Decreased appetite. Review of systems: Was done for constitutional, cardiovascular, GI, pulmonary. relevant finding as above Active Medications Amlodipine Besylate (Norvasc) 2.5 mg PO HS [facility] Last Admin: 10/18/19 20:29 Dose: 2.5 mg Documented by: Cefepime HCl 2 gm/ Sodium (Chloride) 100 mls @ 25 mls/hr IVPB Q8H [facility] Last Admin: 10/18/19 19:55 Dose: 25 mls/hr Documented by: Sodium Chloride (Saline 0.9%) 1,000 mls @ 80 mls/hr IV .[id number] [facility] Last Admin: 10/18/19 11:52 Dose: 80 mls/hr Documented by: Vancomycin HCl 1,250 mg/ (Sodium Chloride) 250 mls @ 125 mls/hr IVPB Q12H [facility] Last Admin: 10/18/19 17:55 Dose: 125 mls/hr Documented by: Lidocaine/Prilocaine (Emla Cream 2.5%/2.5%) 1 applic TOPICAL DAILY PRN PRN Reason: FOR PORT ACCESS Naloxone HCl (Narcan) 0.2 mg IV Q2M PRN PRN Reason: Opioid Reversal Ondansetron HCl (Zofran) 4 mg IVP Q8HR PRN PRN Reason: Nausea And Vomiting Pantoprazole Sodium (Protonix) 40 mg PO DAILY@0730 [facility] Last Admin: 10/18/19 09:09 Dose: 40 mg Documented by: Sodium Bicarbonate () 5 ml PO QID [facility] Last Admin: 10/18/19 20:29 Dose: 5 ml Documented by: Physical examination: VITAL SIGNS: 98, 69, 18, 109/68, 99% room air GENERAL: BMI 23.9, sitting up in chair, awake. EYES: Pupils equal. Conjunctiva normal. HEENT: External appearance of nose and ears normal, oral cavity grossly normal. NECK: JVD not raised; masses not palpable. HEART: First and second heart sounds are normal; no edema. LUNGS: Respiratory rate normal; clear to auscultation. ABDOMEN: Soft, nontender, liver spleen not palpable, no masses palpable. PSYCH: Alert and oriented x3; mood and affect normal. INVESTIGATIONS, reviewed in the clinical context: White count 1.7 hemoglobin 7.5 Previous testing White count 0.5 hemoglobin 8.6 platelets 91 potassium 3.7 creatinine 0.57 sodium 133 UA positive for ketones, trace blood EKG tracing personally reviewed by me-normal sinus rhythm Chest x-ray film personally reviewed by me-possible chronic changes Blood culture drawn Assessment: -Febrile neutropenia with no obvious source of infection. Patient empirically has been started on vancomycin and cefepime.-improving -Breast cancer patient is getting chemotherapy every 2 weeks. -Pancytopenia secondary to chemotherapy -Essential hypertension -Oral Apthous ulcerations likely from chemotherapy -Anorexia from chemotherapy Plan: patient doing better. Has been out of bed. Discussed with Dr. larson. If continues to improve hopefully home tomorrow.
[2019-10-19] MEDS: CEFEPIME 2 GM in SODIUM CHLORIDE 0.9% 100 ML IVPB SCH ×2 (02:44→12:18)
[2019-10-19] MEDS: VANCOMYCIN 1,250 MG in SODIUM CHLORIDE 0.9% 250 ML IVPB SCH (04:57)
[2019-10-19] MEDS: SODIUM CHLORIDE 0.9% 1,000 ML IV SCH (04:58)
[2019-10-19 05:50] VITALS: BP 132/73; PULSE 85; RESP 18; TEMP 97.7
[2019-10-19 07:11] LABS: HCT 23.1 % (34.0-46.0); HGB 7.7 gm/dL (11.4-16.0); MCHC 33.3 g/dL (31.0-37.0); MCV 93.1 fL (80.0-100.0); RBC 2.48 m/uL (3.80-5.40); RDW 14.5 % (11.5-15.5); WBC 4.8 k/uL (3.8-10.6)
[2019-10-19 07:12] LABS: Platelet Count 72 k/uL (150-450)
[2019-10-19 07:20] LABS: African American GFR (CKD) >90 (>60 ml/min/1.73 sqM); Non-African American GFR(CKD) >90 (>60 ml/min/1.73 sqM)
[2019-10-19] MEDS: PANTOPRAZOLE 40 MG TABLET PO SCH (08:56)
[2019-10-19] MEDS: SALT AND SODA MOUTHWASH 1,000 ML PO SCH (08:56)
[2019-10-19 10:36] LABS: Band Neutrophils % 6 %; Basophils # (M) 0.05 k/uL (0-0.2); Lymphocytes # (M) 0.48 k/uL (1.0-4.8); Metamyelocytes % 2 %; Monocytes # (M) 0.58 k/uL (0-1.0); Myelocytes # (M) 0.05 k/uL (0); Myelocytes % 1 %; Neutrophils % (M) 67 %; Nucleated Red Blood Cells 0 /100 WBC (0-0); Total Cells Counted 200
[2019-10-19 10:39] LABS: Anisocytosis (M) Present
--- NOTE | 2019-10-19 16:11 | P.DS ---
Providers Date of admission: 10/17/19 03:07 Expected date of discharge: 10/19/19 Attending physician: Miguel Heredia Consults: 10/17/19 02:59 Consult Physician Routine Consulting Provider: Jacob Rangel Consult Reason/Comments: Neutropenic fever; Hx breast cancer Do you want consulting provider notified?: Yes Primary care physician: Cedric Adams MD Assessment: Chief Complaint: Fever History of presenting complaint: This is a very pleasant 69-year-old patient follows with her primary Dr. Cedric Adams. Patient is being diagnosed with breast cancer. Gets chemotherapy every 2 weeks. Last chemotherapy was about 10 days ago. A month ago patient had diverticulitis. Since then she has been on preventive antibiotics. She developed a fever yesterday. No cough no shortness of breath no urinary symptoms. No diarrhea. Presented to the ER. Empirically started on antibiotics including vancomycin and cefepime. Patient has some oral sores. Decreased appetite. Some weight loss. is present at bedside. Patient's oncologist is Dr. Gomez from the [facility] today-continues to improve. No further fever. Cultures are negative. Keen to go home. Consultation: Dr. rangel from oncology Physical examination: VITAL SIGNS: 97.7, 85, 18, 132.73, 97% room air GENERAL: Sitting up in a chair, comfortable. EYES: Pupils equal. Conjunctiva normal. HEENT: External appearance of nose and ears normal, oral cavity grossly normal. NECK: JVD not raised; masses not palpable. HEART: First and second heart sounds are normal; no edema. LUNGS: Respiratory rate normal; clear to auscultation. ABDOMEN: Soft, nontender, liver spleen not palpable, no masses palpable. PSYCH: Alert and oriented x3; mood and affect normal. INVESTIGATIONS, reviewed in the clinical context: White count 4.8 kg and 7.7 platelets 72 creatinine 0.53 Previous testing White count 0.5 hemoglobin 8.6 platelets 91 potassium 3.7 creatinine 0.57 sodium 133 UA positive for ketones, trace blood EKG tracing personally reviewed by me-normal sinus rhythm Chest x-ray film personally reviewed by me-possible chronic changes Blood culture-negative Assessment: -Febrile neutropenia with no obvious source of infection. Patient empirically has been started on vancomycin and cefepime. Doing well -Breast cancer patient is getting chemotherapy every 2 weeks. -Pancytopenia secondary to chemotherapy -Essential hypertension -Oral Apthous ulcerations likely from chemotherapy -Anorexia from chemotherapy Disposition: Home Patient Condition at Discharge: Stable Plan - Discharge Summary Discharge Rx Participant: Yes New Discharge Prescriptions: New Amoxicillin/Potassium Clav [Augmentin 875-125 Tablet] 1 tab PO Q12HR #10 tab Continue amLODIPine [Norvasc] 2.5 mg PO HS Lidocaine-Prilocaine Cream [Emla Cream 2.5%/2.5%] 1 applic TOPICAL DAILY PRN PRN Reason: FOR PORT ACCESS Omeprazole Magnesium [PriLOSEC OTC] 20 mg PO DAILY Discontinued Amoxicillin/Potassium Clav [Amox-Clav ER 1,000-62.5 mg Tab] 2 tablet PO BID Discharge Medication List Lidocaine-Prilocaine Cream [Emla Cream 2.5%/2.5%] 1 applic TOPICAL DAILY PRN 10/17/19 [History] Omeprazole Magnesium [PriLOSEC OTC] 20 mg PO DAILY 10/17/19 [History] amLODIPine [Norvasc] 2.5 mg PO HS 10/17/19 [History] Amoxicillin/Potassium Clav [Augmentin 875-125 Tablet] 1 tab PO Q12HR #10 tab 10/19/19 [Rx] Follow up Appointment(s)/Referral(s): dr mary [Other] - 1 Week Cedric Adams MD [Primary Care Provider] - 1-2 days Patient Instructions/Handouts: Amoxicillin/Clavulanate Potassium (By mouth), Neutropenia (DC) Activity/Diet/Wound Care/Special Instructions: cbc/bmp bloodwork in 3 days Discharge Disposition: HOME SELF-CARE
[2019-10-20] MEDS ORDERED: VANCOMYCIN TROUGH DUE 1 EACH MISC MISCELLANE ONE (16:00)
== END 2019-10-19 13:45 | disposition home or self-care (01) ==
LOC: EC 23:20 → 6NMEDSUR 10-17 03:07
PROVIDERS: ADMIT Hospitalist; ATTEND Hospitalist
DX: D70.9 Neutropenia, unspecified (principal); R50.81 Fever presenting with conditions classified elsewhere; C50.912 Malignant neoplasm of unspecified site of left female breast; C77.3 Secondary and unspecified malignant neoplasm of axilla and upper limb lymph nodes; D61.810 Antineoplastic chemotherapy induced pancytopenia; T45.1X5A Adverse effect of antineoplastic and immunosuppressive drugs, initial encounter; I10 Essential (primary) hypertension; K12.0 Recurrent oral aphthae; R63.0 Anorexia; K57.91 Diverticulosis of intestine, part unspecified, without perforation or abscess with bleeding; F32.9 Major depressive disorder, single episode, unspecified; Z68.23 Body mass index [BMI] 23.0-23.9, adult; Z79.899 Other long term (current) drug therapy; Z88.8 Allergy status to other drugs, medicaments and biological substances; Z87.891 Personal history of nicotine dependence; Z79.2 Long term (current) use of antibiotics; Z82.49 Family history of ischemic heart disease and other diseases of the circulatory system; Z80.0 Family history of malignant neoplasm of digestive organs; Z80.8 Family history of malignant neoplasm of other organs or systems
CPT/HCPCS: 96361 ×3; 96366 ×3; 96367; 96375; 96365; 99285; 36415; 93005; 80053; 82565; 83605; 85025 ×2; 85027; 85610; 85730; 81001; 87040; 71046; G0378 ×3; J3370 ×3; J0692 ×3; J1642

== ENCOUNTER 2024-03-04 07:43 | Day surgery (SDC) | payer MEDICARE ==
[~2024-03-04 07:43] MED LIST changes: -HYDROmorphone 0.5 MG/0.5 ML SYRINGE IVP PRN; -LACTATED RINGERS 1,000 ML IV SCH; +LIDOCAINE 1% (10MG/ML) FOR IV START INTRADERMA PRN; -LIDOCAINE 1% 20 ML VIAL (10MG/ML) FOR IV START INTRADERMA PRN; -MIDAZOLAM 2 MG/2 ML VIAL IV PRN; -ONDANSETRON 4 MG/2 ML VIAL IVP ONE; -Pre Op ABX Message 1 EACH MISC MISCELLANE ONE; -SCOPOLAMINE 1.5MG/72HR PATCH TRANSDERM ONE
[2024-03-04 08:11] VITALS: TEMP 97.9
[2024-03-04] MEDS: LACTATED RINGERS 1,000 ML IV SCH (08:16)
[2024-03-04] MEDS: IV FLUID CONTINUATION 1,000 ML IV ONE (08:16)
[2024-03-04] MEDS ORDERED: LIDOCAINE 2% (PF) 20 MG/ML 5 ML VIAL ONE (08:24)
[2024-03-04] MEDS ORDERED: PROPOFOL 10 MG/ML 20 ML VIAL IV ONE (08:24)
--- NOTE | 2024-03-04 08:44 | P.PCN ---
Date of Procedure: 03/04/24 Procedure(s) Performed: BRIEF HISTORY: Patient is a 74-year-old pleasant white female scheduled for an elective colonoscopy as a part of h screening foristory of colon polyps. Her last colonoscopy was 5 years ago. PROCEDURE PERFORMED: Colonoscopy with biopsy. PREOPERATIVE DIAGNOSIS: Screening for prior history of colon polyps. IV sedation per Anesthesia. PROCEDURE: After informed consent was obtained, the patient, was brought into the endoscopy unit. IV sedation was administered by Anesthesia under continuous monitoring. Digital rectal examination was normal. Initially the Olympus CF-160 flexible video colonoscope was then inserted in the rectum, gradually advanced into the cecum without any difficulty. Careful examination was performed as the scope was gradually being withdrawn. Ileocecal valve and the appendiceal orifice were visualized and appeared normal. Prep was excellent. Mucosa of the cecum, ascending colon, transverse colon, descending colon normal. In the distal sigmoid colon extending from 25 to 30 cm from anal wound there was mild patchy areas of erythema noted and biopsies were done from this area. Scattered sigmoid diverticulosis noted. Rest of the, sigmoid colon, and rectum appeared normal. Retroflexion was performed in the rectum and no lesions were seen. The patient tolerated the procedure well. IMPRESSION: Normal-appearing colon from rectum to cecum no evidence of colorectal neoplasia Scattered sigmoid diverticulosis Mild patchy areas of erythema in the sigmoid colon extending from 25 to 30 cm from the anal wound status post biopsies rule out colitis. RECOMMENDATIONS: Findings of this examination were discussed with the patient as well as some her family. She was advised to follow-up with the biopsy results. Recommend repeat colonoscopy in 10 years..
[2024-03-04 08:53] VITALS: RESP 16
[2024-03-04 09:18] VITALS: BP 154/71; PULSE 58
== END 2024-03-04 09:31 | disposition home or self-care (01) ==
LOC: ORWHC2ENDO 07:43
PROVIDERS: ATTEND Internal Medicine Gastroenterology
DX: K57.32 Diverticulitis of large intestine without perforation or abscess without bleeding (principal); C50.912 Malignant neoplasm of unspecified site of left female breast; I89.0 Lymphedema, not elsewhere classified; I10 Essential (primary) hypertension; F32.A Depression, unspecified; Z04.3 Encounter for examination and observation following other accident; Z86.0100 Personal history of colon polyps, unspecified; Z88.8 Allergy status to other drugs, medicaments and biological substances; Z90.12 Acquired absence of left breast and nipple; Z79.02 Long term (current) use of antithrombotics/antiplatelets; Z79.899 Other long term (current) drug therapy
CPT/HCPCS: 45380; J2704; J2003; 88305